=== PATIENT | male | born 1990 | race Caucasian/White ===

== ENCOUNTER 2017-04-01 21:21 | Emergency (ER) | payer SELFPAY ==
[~2017-04-01] VITALS: Ht 172.7 cm; Wt 56.7 kg
[~2017-04-01 21:21] MED LIST: IV NORMAL SALINE 1000ML BAG 1,000 ML IV ONE
[2017-04-01 21:51] LABS: BASO # 0.1 x10^3/uL (0.0-0.2); BASO % 1 % (0-3); EOS % 4 % (0-3); HEMATOCRIT 44.2 % (39.0-53.0); HEMOGLOBIN 14.8 g/dL (13.0-17.5); LYMPH # 2.4 x10^3/uL (1.0-4.8); LYMPH % 24 % (24-48); MEAN CORPUSCULAR HEMOGLOBIN 30 pg (25-35); MEAN CORPUSCULAR HGB CONC 34 g/dL (31-37); MEAN CORPUSCULAR VOLUME 90 fL (79-100); MONO % 10 % (0-9); NEUT % 62 % (31-73); PLATELET COUNT 265 x10^3/uL (140-400); RED CELL DISTRIBUTION WIDTH 14.3 % (11.5-14.5); WHITE BLOOD COUNT 10.2 x10^3/uL (4.0-11.0)
[2017-04-01] MEDS ORDERED: ONDANSETRON PF 4 MG/2 ML VIAL. IV ONE (22:00)
[2017-04-01] MEDS ORDERED: IV NORMAL SALINE 1000ML BAG 1,000 ML IV ONE (22:00)
[2017-04-01 22:04] LABS: CALCIUM 8.5 mg/dL (8.5-10.1); CREATININE 0.9 mg/dL (0.7-1.3); GFR 100.5; POTASSIUM 4.2 mmol/L (3.5-5.1)
[2017-04-01 22:09] LABS: ALBUMIN 3.8 g/dL (3.4-5.0); ALBUMIN/GLOBULIN RATIO 1.1 (1.0-1.7); TOTAL BILIRUBIN 0.2 mg/dL (0.2-1.0); TOTAL PROTEIN 7.2 g/dL (6.4-8.2)
[2017-04-01 22:41] LABS: BILIRUBIN,URINE NEGATIVE (NEG); GLUCOSE,URINE NEGATIVE (NEG); NITRITE,URINE NEGATIVE (NEG); PROTEIN,URINE NEGATIVE (NEG-TRACE); UROBILINOGEN,URINE 0.2 mg/dL (0.2 mg/dL)
[2017-04-01 22:53] LABS: BACTERIA,URINE FEW /HPF (0-FEW); RBC,URINE OCC /HPF (0-2); WBC,URINE OCC /HPF (0-4)
[2017-04-01 22:54] LABS: SQUAMOUS EPITHELIAL CELL,UR FEW /LPF
--- NOTE | 2017-04-01 23:03 | PHYS DOC ---
Past Medical History Past Medical History: No Pertinent History Additional Past Surgical Histo: CHEST TUBE Alcohol Use: None Drug Use: None Adult General Chief Complaint Chief Complaint: DIZZY/LIGHT HEADED HPI HPI Patient is a 26 year old gentleman who presents here today secondary to feeling nauseous and dizzy. Patient reports that he has been at home with no air conditioning for last 2 days and feels that he got dehydrated. Patient has any fevers shakes chills nausea vomiting diarrhea cough cold or runny nose. Patient has a dysuria frequency or urgency. Patient reports he is tolerate by mouth's well. Patient reports had a sandwich and soda prior to arrival. Patient has any hypertension diabetes liver longer kidney problems. Patient reports he smokes cigarettes the alcohol or drugs. Constitutional: Denies fever or chills [] Eyes: Denies change in visual acuity, redness, or eye pain [] HENT: Denies nasal congestion or sore throat [] All other review systems are negative except as documented in the history of present illness portion. Constitutional: Well developed, well nourished, no acute distress, non-toxic appearance. [] HENT: Normocephalic, atraumatic, bilateral external ears normal, oropharynx moist, no oral exudates, nose normal. [] Eyes: PERRLA, EOMI, conjunctiva normal, no discharge. [] Neck: Normal range of motion, no tenderness, supple, no stridor. [] Cardiovascular:Heart rate regular rhythm, Lungs & Thorax: Bilateral breath sounds clear to auscultation [] Abdomen: Bowel sounds normal, soft, no tenderness, no masses, no pulsatile masses. [] Skin: Warm, dry, no erythema, no rash. [] Back: No tenderness, no CVA tenderness. [] Extremities: No tenderness, no cyanosis, no clubbing, ROM intact, no edema. [] Neurologic: Alert and oriented X 3, normal motor function, normal sensory function, no focal deficits noted. [] Psychologic: Affect normal, judgement normal, mood normal. [] Assessment and plan This is a 26-year-old gentleman who presents here today with dehydration. Patient's clinically hemodynamically stable at this time. Patient's labs were all within normal limits. Patient to be discharged home. Patient received a liter of normal saline here. Patient's chemistry and CBC were all within normal limits. Discharge instructions s and precautions have been discussed with the patient. Current Medications Current Medications Current Medications Medications (Trade) Dose Ordered Sig/Kym Start Time Stop Time Status Last Admin Dose Admin Ondansetron HCl (Zofran) 4 mg 1X ONCE 04/01/17 22:00 04/01/17 22:01 DC 04/01/17 22:11 4 MG Sodium Chloride 1,000 ml @ 1,000 mls/hr 1X ONCE 04/01/17 22:00 04/01/17 22:59 DC 04/01/17 22:12 1,000 MLS/HR Allergies Allergies Allergies Coded Allergies Type Severity Reaction Last Updated Verified No Known Drug Allergies 04/01/17 No Current Patient Data Vital Signs Vital Signs Date Time Temp Pulse Resp B/P (MAP) Pulse Ox O2 Delivery O2 Flow Rate FiO2 04/01/17 22:27 75 20 121/60 (80) 98 Room Air 04/01/17 21:35 98.2 98.2 Lab Values Laboratory Tests Test 04/01/17 21:35 04/01/17 22:35 White Blood Count 10.2 x10^3/uL (4.0-11.0) Red Blood Count 4.90 x10^6/uL (4.30-5.70) Hemoglobin 14.8 g/dL (13.0-17.5) Hematocrit 44.2 % (39.0-53.0) Mean Corpuscular Volume 90 fL (79-100) Mean Corpuscular Hemoglobin 30 pg (25-35) Mean Corpuscular Hemoglobin Concent 34 g/dL (31-37) Red Cell Distribution Width 14.3 % (11.5-14.5) Platelet Count 265 x10^3/uL (140-400) Neutrophils (%) (Auto) 62 % (31-73) Lymphocytes (%) (Auto) 24 % (24-48) Monocytes (%) (Auto) 10 % (0-9) H Eosinophils (%) (Auto) 4 % (0-3) H Basophils (%) (Auto) 1 % (0-3) Neutrophils # (Auto) 6.3 x10^3uL (1.8-7.7) Lymphocytes # (Auto) 2.4 x10^3/uL (1.0-4.8) Monocytes # (Auto) 1.0 x10^3/uL (0.0-1.1) Eosinophils # (Auto) 0.4 x10^3/uL (0.0-0.7) Basophils # (Auto) 0.1 x10^3/uL (0.0-0.2) Sodium Level 145 mmol/L (136-145) Potassium Level 4.2 mmol/L (3.5-5.1) Chloride Level 106 mmol/L (98-107) Carbon Dioxide Level 30 mmol/L (21-32) Anion Gap 9 (6-14) Blood Urea Nitrogen 8 mg/dL (8-26) Creatinine 0.9 mg/dL (0.7-1.3) Estimated GFR (Cockcroft-Gault) 100.5 BUN/Creatinine Ratio 9 (6-20) Glucose Level 99 mg/dL (70-99) Calcium Level 8.5 mg/dL (8.5-10.1) Total Bilirubin 0.2 mg/dL (0.2-1.0) Aspartate Amino Transferase (AST) 17 U/L (15-37) Alanine Aminotransferase (ALT) 24 U/L (16-63) Alkaline Phosphatase 72 U/L (46-116) Total Protein 7.2 g/dL (6.4-8.2) Albumin 3.8 g/dL (3.4-5.0) Albumin/Globulin Ratio 1.1 (1.0-1.7) Urine Collection Type Unknown Urine Color Yellow Urine Clarity Cloudy Urine pH 7.0 Urine Specific [place] 1.020 Urine Protein Negative mg/dL (NEG-TRACE) Urine Glucose (UA) Negative mg/dL (NEG) Urine Ketones (Stick) Negative mg/dL (NEG) Urine Blood Negative (NEG) Urine Nitrite Negative (NEG) Urine Bilirubin Negative (NEG) Urine Urobilinogen Dipstick 0.2 mg/dL (0.2 mg/dL) Urine Leukocyte Esterase Negative (NEG) Urine RBC Occ /HPF (0-2) Urine WBC Occ /HPF (0-4) Urine Squamous Epithelial Cells Few /LPF Urine Amorphous Sediment Present /HPF Urine Bacteria Few /HPF (0-FEW) Urine Mucus Mod /LPF Laboratory Tests 04/01/17 21:35 Laboratory Tests 04/01/17 21:35 EKG EKG [] Radiology/Procedures Radiology/Procedures [] Course & Med Decision Making Course & Med Decision Making Pertinent Labs and Imaging studies reviewed. (See chart for details) [] Dragon Disclaimer Dragon Disclaimer This electronic medical record was generated, in whole or in part, using a voice recognition dictation system. Departure Departure Impression: Primary Impression: Dehydration Disposition: 01 HOME, SELF-CARE Condition: STABLE Referrals: NO PCP (PCP) Patient Instructions: Dehydration, Adult, Heat Disorders MARQUES JOSE MD Apr 01, 2017 23:03
[2017-04-01 23:05] VITALS: BP 124/76
== END 2017-04-01 23:08 | disposition home or self-care (01) ==
LOC: ER 21:21
DX: E86.0 Dehydration (principal)
CPT/HCPCS: 36415; 80053; 81001; 85027; 96361; 96374; 99284; J2405; J7030